=== PATIENT | male | born 1985 | race Caucasian/White ===

== ENCOUNTER 2020-02-16 13:14 | Emergency (ER) | payer SELFPAY ==
--- NOTE | 2020-02-16 14:37 | ER Document Report ---
Entered by SHAY YOUNG SCRIBE 02/16/20 1433 Acting as scribe for:JOANA BAEZ MD ED General - General Chief Complaint: Sore Throat Stated Complaint: SORE THROAT Time Seen by Provider: 02/16/20 13:49 Mode of Arrival: Ambulatory Information source: Patient Notes: This 34 year old male patient presents to the ED today with complaints of sore throat, body aches, and fatigue that started x3 days ago, worse in the last x2 days. 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 He is staying in a hotel and for the past x2 nights, he has been waking up in a sweat, so he decided to come to the ED for evaluation. He also re ports nausea and dark-colored urine, but denies diarrhea, rash, or headache. - Related Data Allergies/Adverse Reactions: Penicillins Allergy (Verified 02/16/20 14:19) Past Medical History - General Information source: Patient - Social History Smoking Status: Current Every Day Smoker Chew tobacco use (# tins/day): No Smoking Education Provided: No Frequency of alcohol use: Occasional Drug Abuse: None Family History: Reviewed & Not Pertinent Patient has homicidal ideation: No Psychiatric Medical History: Reports: Hx Anxiety Review of Systems - Review of Systems Constitutional: See HPI, Diaphoresis EENT: See HPI, Throat pain Cardiovascular: No symptoms reported Respiratory: See HPI, Cough, Short of breath Gastrointestinal: No symptoms reported Genitourinary: See HPI Male Genitourinary: No symptoms reported Musculoskeletal: See HPI, Muscle pain Skin: See HPI. denies: Rash Hematologic/Lymphatic: No symptoms reported Neurological/Psychological: See HPI. denies: Headaches Physical Exam - Vital signs Vitals: Temp Pulse Resp BP Pulse Ox 98.5 F 86 16 170/114 H 100 02/16/20 13:40 02/16/20 13:40 02/16/20 13:40 02/16/20 13:40 02/16/20 13:40 Interpretation: Hypertensive - General General appearance: Alert In distress: None - HEENT Head: Normocephalic, Atraumatic Eyes: Normal Extraocular movements intact: Yes Pupils: PERRL Tympanic membrane: Injected - Bilateral, left worse than right. Clear fluid behind both TMs Pharynx: Erythema, Exudate - yellow-colored, right tonsil, Other - Right tonsillar swelling - Respiratory Respiratory status: No respiratory distress Chest status: Nontender Breath sounds: Normal Chest palpation: Normal - Cardiovascular Rhythm: Regular Heart sounds: Normal auscultation, S1 appreciated, S2 appreciated Murmur: No Friction rub: No Gallop: None auscultated - Abdominal Inspection: Normal Distension: No distension Bowel sounds: Normal Tenderness: Nontender - Abdomen soft Organomegaly: No organomegaly - Back Back: Normal, Nontender - Extremities General upper extremity: Normal inspection General lower extremity: Normal inspection. No: Edema - Neurological Neuro grossly intact: Yes Orientation: AAOx4 [place] Coma Scale Eye Opening: Spontaneous [place] Coma Scale Verbal: Oriented Demetra Coma Scale Motor: Obeys Commands [place] Coma Scale Total: 15 - Psychological Associated symptoms: Normal affect, Normal mood - Skin Skin Temperature: Warm Skin Moisture: Dry Skin Color: Normal Course - Re-evaluation Re-evalutation: 02/16/20 15:34 Patient is resting comfortably not showing signs of distress at this time. - Vital Signs Vital signs: Temp Pulse Resp BP Pulse Ox 98.5 F 86 16 170/114 H 100 02/16/20 13:40 02/16/20 13:40 02/16/20 13:40 02/16/20 13:40 02/16/20 13:40 02/16/20 15:34 Vital signs systolic diastolic hypertension. Repeat vital signs pending. 02/16/20 15:54 Repeat blood pressure shows improvement down to systolic in the 140s and diastolic around 90. - Laboratory Result Diagrams: 02/16/20 14:35 02/16/20 14:35 Laboratory results interpreted by me: 02/16/20 14:35 WBC 12.5 H Lymph % (Auto) 10.2 L Absolute Neuts (auto) 9.5 H Absolute Monos (auto) 1.6 H Strep test negative throat culture pending. - Diagnostic Test Radiology reviewed: Image reviewed, Reports reviewed Discharge - Discharge Clinical Impression: Acute pharyngitis, Suspected COVID-19 virus infection, Elevated blood pressure reading without diagnosis of hypertension Condition: Stable Disposition: HOME, SELF-CARE Instructions: COVID-19 Guidance for Persons Under Investigation, Sore Throat ([facility]) Additional Instructions: Viral Syndrome The physician has diagnosed a viral infection. Viruses not only cause "colds," but can cause many different symptoms including generalized aching, fever, headache, cough, diarrhea, nausea, vomiting, and fatigue. The treatment, for the most part, is simply relief of symptoms. This means that antibiotics are usually not given. Rest, fluids, pain medications and, occasionally, medication for the specific symptoms that are most bothersome will be prescribed. Use good handwashing to avoid passing the virus to others. Shared toys should be cleaned with disinfectant. Clean the toilets, sinks, and counter surfaces in bathrooms. Launder clothing in hot water. Contact the physician if you develop any new or unusual symptoms such as severe headache, stiff neck, high fever, chest pain, productive cough, or s hortness of breath. You should be rechecked if you don't see marked improvement within seven to 10 days. Recommend ibuprofen or Tylenol as needed for pain fever or chills. As stated you need to quarantine self quarantine yourself until you are notified of the test results of the COVID-19 study done today. It may take 2 or more days for those results to arrive therefore continue your self quarantine until you have heard official call from the emergency department on your test results. Prescriptions: Azithromycin [Zithromax 250 mg Tablet] 250 mg PO ASDIR PRN #6 tablet PRN Reason: I personally performed the services described in the documentation, reviewed and edited the documentation which was dictated to the scribe in my presence, and it accurately records my words and actions.
[2020-02-16] MEDS: NORMAL SALINE 1000 ML 1,000 ML IV PRN ×2 (14:41→15:10)
[2020-02-16 14:56] LABS: ABSOLUTE EOSINOPHILS # (AUTO) 0.1 10^3/uL (0.0-0.6); ABSOLUTE LYMPHOCYTES (AUTO) 1.3 10^3/uL (0.5-4.7); ABSOLUTE MONOCYTES (AUTO) 1.6 10^3/uL (0.1-1.4); ABSOLUTE NEUT (AUTO) 9.5 10^3/uL (1.7-8.2); BASOPHILS % (AUTO) 0.2 % (0-2); EOSINOPHILS % (AUTO) 0.8 % (0-6); HEMATOCRIT 44.1 % (37.9-51.0); HEMOGLOBIN 15.7 g/dL (13.5-17.0); LYMPHOCYTES % (AUTO) 10.2 % (13-45); MEAN CORPUSCULAR HEMOGLOBIN 31.2 pg (27.0-33.4); MEAN CORPUSCULAR HGB CONC 35.5 g/dL (32.0-36.0); MEAN CORPUSCULAR VOLUME 88 fl (80-97); MONOCYTES % (AUTO) 12.7 % (3-13); PLATELET COUNT 236 10^3/uL (150-450); RED BLOOD COUNT 5.02 10^6/uL (4.35-5.55); RED CELL DISTRIBUTION WIDTH 13.3 % (11.5-14.0); SEGMENTED NEUTROPHILS % (AUTO) 76.1 % (42-78); TOTAL CELLS COUNTED % (AUTO) 100 %; WHITE BLOOD COUNT 12.5 10^3/uL (4.0-10.5)
[2020-02-16 15:12] LABS: ALBUMIN 4.6 g/dL (3.5-5.0); ALKALINE PHOSPHATASE 102 U/L (38-126); ANION GAP 11 (5-19); ASPARTATE AMINO TRANSFERASE 39 U/L (17-59); BILIRUBIN,DIRECT 0.3 mg/dL (0.0-0.4); BILIRUBIN,TOTAL 0.7 mg/dL (0.2-1.3); BLOOD UREA NITROGEN 10 mg/dL (7-20); CALCIUM 9.6 mg/dL (8.4-10.2); CARBON DIOXIDE 27 mmol/L (22-30); CHLORIDE 100 mmol/L (98-107); GLUCOSE 105 mg/dL (75-110); POTASSIUM 4.4 mmol/L (3.6-5.0); TOTAL PROTEIN 7.8 g/dL (6.3-8.2)
--- NOTE | 2020-02-16 15:18 | RADIOLOGY REPORT (SQ) ---
EXAM DESCRIPTION: CHEST SINGLE VIEW IMAGES COMPLETED DATE/TIME: 02/16/2020 3:06 pm REASON FOR STUDY: sobr/sweats COMPARISON: None. EXAM PARAMETERS: NUMBER OF VIEWS: One view. TECHNIQUE: Single frontal radiographic view of the chest acquired. RADIATION DOSE: NA LIMITATIONS: None. FINDINGS: LUNGS AND PLEURA: No opacities, masses or pneumothorax. No pleural effusion. MEDIASTINUM AND HILAR STRUCTURES: No masses. Contour normal. HEART AND VASCULAR STRUCTURES: Heart normal in size. Normal vasculature. BONES: No acute findings. HARDWARE: None in the chest. OTHER: No other significant finding. IMPRESSION: NO ACUTE RADIOGRAPHIC FINDING IN THE CHEST. TECHNICAL DOCUMENTATION: JOB ID: [id number] 2010 [employer]- All Rights Reserved Reading location - IP/workstation name: [email or web address]
[2020-02-16] MEDS ORDERED: CEFTRIAXONE 1 GM/D5W RTU 1 GM/50 ML RTUPB IV ONE (15:25)
[2020-02-16 15:55] VITALS: BP 145/89
[2020-02-16] MEDS ORDERED: KETOROLAC TROMETHAMINE INJ/PF 30 MG/1 ML SDV IV ONE (15:55)
== END 2020-02-16 16:28 | disposition home or self-care (01) ==
LOC: ER 13:14
DX: J02.0 Streptococcal pharyngitis (principal); Z20.828 Contact with and (suspected) exposure to other viral communicable diseases; R03.0 Elevated blood-pressure reading, without diagnosis of hypertension; M79.10 Myalgia, unspecified site; R53.83 Other fatigue; Z88.0 Allergy status to penicillin; F17.200 Nicotine dependence, unspecified, uncomplicated
CPT/HCPCS: 99284; 96361; 96375; 96365; 36415; 87040; 87880; 85025; 87635; 80053; 71045; J1885; J7030; J0696; C9803